=== PATIENT | male | born 1980 | race Caucasian/White ===

== ENCOUNTER 2019-07-21 12:13 | Emergency (ER) | payer OTHER ==
[~2019-07-21] VITALS: Ht 185.4 cm; Wt 89.8 kg
[2019-07-21 12:40] LABS: INFLUENZA A ANTIGEN Positive (Negative); INFLUENZA B ANTIGEN Negative (Negative)
[2019-07-21] MEDS ORDERED: ONDANSETRON HCL4 M2 PO (13:05)
[2019-07-21] MEDS ORDERED: MEDROLDOSEPACK PO (13:05)
[2019-07-21] MEDS ORDERED: VENTOLIN HFA 1818 GM INH (13:05)
[2019-07-21] MEDS ORDERED: TAMIFLU75 MG PO (13:05)
[2019-07-21 14:35] VITALS: BP 133/87
== END 2019-07-21 14:36 | disposition home or self-care (01) ==
LOC: M.ERS 12:13
PROVIDERS: Emergency Medicine
DX: J09.X2 Influenza due to identified novel influenza A virus with other respiratory manifestations (principal); F17.210 Nicotine dependence, cigarettes, uncomplicated